=== PATIENT | female | born 1960 | race Caucasian/White ===

== ENCOUNTER → 2020-03-11 | Outpatient (CLI) | payer OTHER ==
[~2020-03-11] MED LIST: GUAI5LIQ PO; LEVO88TA2 PO; LORA-445 PO; MAGN400T9 PO; METO50TA82 PO; OXYC-302 PO; PANT40TA3 PO; SIMV10TA18 PO
[2020-03-11 17:16] LABS: MEAN CORPUSCULAR HEMOGLOBIN 28.7 pg (27.0-34.8); MEAN PLATELET VOLUME 8.7 fL (7.4-10.4); PLATELET COUNT 365 x10^3/uL (130-400); RED BLOOD COUNT 4.65 x10^6/uL (3.82-5.3); RED CELL DISTRIBUTION WIDTH 17.5 % (9.6-15.2)
[2020-03-11 17:27] LABS: ALANINE AMINOTRANSFERASE 224 U/L (12-78); ALBUMIN 2.9 g/dL (3.4-5.0); ANION GAP 9 mmol/L (5-15); CALCIUM 8.3 mg/dL (8.5-10.1); CHLORIDE 110 mmol/L (98-107); CREATININE 0.79 mg/dL (0.55-1.02)
[2020-03-11 17:29] LABS: ALKALINE PHOSPHATASE 239 U/L (45-117); BILIRUBIN,TOTAL 1.2 mg/dL (0.2-1.0); TOTAL PROTEIN 6.3 g/dL (6.4-8.2)
[2020-03-11 17:30] LABS: INTERNATIONAL NORMALIZED RATIO 1.14 (0.93-1.1); PROTHROMBIN TIME 12.1 Seconds (9.6-11.5)
[2020-03-11 17:53] LABS: MD YES
[2020-03-11 17:54] LABS: BASOS#(MANUAL) 0.08 x10^3/uL (0-0.1); BASOS% (MANUAL) 1 % (0-1); EOS#(MANUAL) 0.08 x10^3/uL (0.0-0.4); EOS% (MANUAL) 1 % (1-7); LYMPH#(MANUAL) 2.89 x10^3/uL (1-3.4); LYMPHS% (MANUAL) 38 % (22-44); MONOS#(MANUAL) 0.68 x10^3/uL (0.3-2.7); MONOS% (MANUAL) 9 % (2-9); SEG#(MANUAL) 3.88 x10^3/uL (1.8-6.8); SEGS% (MANUAL) 51 % (42-75)
[2020-03-11 17:56] LABS: ACANTHOCYTES 1+
[2020-03-11 17:57] LABS: ECHINOCYTES 1+; TARGET CELLS 1+
[2020-03-11 18:00] LABS: SCHISTOCYTES 1+
[2020-03-11 18:03] LABS: ANISOCYTOSIS 1+
[2020-03-11 18:04] LABS: <PLATELET ESTIMATE> ADEQUATE; <PLT MORPHOLOGY> NORMAL PLT MORPH; CRENATED 1+
== END | disposition home or self-care (01) ==
LOC: STAR 15:44
PROVIDERS: ATTEND Specialist
DX: Z01.818 Encounter for other preprocedural examination (principal); Z51.11 Encounter for antineoplastic chemotherapy; C79.00 Secondary malignant neoplasm of unspecified kidney and renal pelvis; C56.9 Malignant neoplasm of unspecified ovary; R94.31 Abnormal electrocardiogram [ECG] [EKG]
CPT/HCPCS: 36415; 71046; 80053; 85025; 85610; 85730; 93005; J1642

== ENCOUNTER 2020-03-18 06:59 | Inpatient (IN) | payer OTHER ==
[~2020-03-18] VITALS: Ht 162.6 cm; Wt 48.0 kg
[2020-03-18] MEDS ORDERED: LACTATED RINGERS 1,000 ML IV ONE (07:15)
[2020-03-18] MEDS ORDERED: CEFOTETAN PMX 2GM/50ML 50 ML IVPB STA (07:15)
[2020-03-18] MEDS ORDERED: CHLORHEXIDINE 15 ML UDC MM STA (07:16)
[2020-03-18] MEDS ORDERED: MIDAZOLAM 1 MG/ML, 2ML ONE (07:35)
[2020-03-18] MEDS ORDERED: FENTANYL PF 250 MCG/5ML ONE (07:35)
[2020-03-18] MEDS ORDERED: SCOPOLAMINE 1MG PATCH TD ONE ×2 (07:36→07:40)
[2020-03-18] MEDS ORDERED: GABAPENTIN 300 MG CAPSULE PO STA (07:36)
[2020-03-18] MEDS ORDERED: ACETAMINOPHEN 500 MG TABLET PO STA (07:36)
[2020-03-18] MEDS ORDERED: ONDANSETRON 2MG/ML, 2ML IVPush PRN (09:00)
[2020-03-18] MEDS ORDERED: OXYcodone 5 MG/5 ML ORAL.SOL UDC PO PRN (09:00)
[2020-03-18] MEDS ORDERED: LABETALOL 5MG/ML, 20ML IV PRN (09:00)
[2020-03-18] MEDS ORDERED: MEPERIDINE/PF 25MG/0.5ML IVPush PRN (09:00)
[2020-03-18] MEDS ORDERED: hydrALAzine 20 MG/ML, 1ML IV PRN (09:00)
[2020-03-18] MEDS ORDERED: PROMETHAZINE 25 MG/ML, 1ML IVPush PRN (09:00)
[2020-03-18] MEDS ORDERED: DIPHENHYDRAMINE 50 MG/ML, 1ML IVPush PRN ×2 (09:00→11:30)
[2020-03-18] MEDS ORDERED: DIAZEPAM 5 MG/ML, 2ML IVPush PRN (09:00)
[2020-03-18] MEDS ORDERED: GLYCOPYRROLATE 0.2MG/1ML, 5ML ONE (09:12)
[2020-03-18] MEDS ORDERED: PROPOFOL 10 MG/ML, 20ML ONE (09:12)
[2020-03-18] MEDS ORDERED: NEOSTIGMINE 1 MG/ML, 10ML ONE (09:12)
[2020-03-18] MEDS ORDERED: ROCURONIUM 10 MG/ML,10ML ONE (09:12)
[2020-03-18] MEDS ORDERED: DEXAMETHASONE 4 MG/ML, 1ML ONE (09:12)
[2020-03-18] MEDS ORDERED: ONDANSETRON 2MG/ML, 2ML ONE (09:12)
[2020-03-18] MEDS ORDERED: ACETAMINOPHEN 325 MG TABLET PO PRN (11:30)
[2020-03-18] MEDS ORDERED: FENTANYL PF 100 MCG/2ML ONE (12:11)
[2020-03-18] MEDS: FENTANYL PF 100 MCG/2ML IV PRN ×2 (12:12→12:17)
[2020-03-18] MEDS ORDERED: HYDROmorphone 2 MG/ML, 1ML ONE (12:15)
[2020-03-18] MEDS: HYDROmorphone 1 MG/ML, 1ML INJ IVPush PRN ×2 (12:19→12:45)
[2020-03-18 14:34] VITALS: BP 99/65
[2020-03-18] MEDS: POTASSIUM CHLORIDE 20 MEQ in D5%-0.9% NACL 1,000 ML IV SCH ×2 (15:17→23:42)
[2020-03-18 19:50] VITALS: BP 95/61
[2020-03-18] MEDS: FAMOTIDINE 20 MG/2 ML IV SCH (21:31)
[2020-03-19 01:24] VITALS: BP 107/74
[2020-03-19] MEDS: LEVOTHYROXINE 88 MCG TABLET PO SCH (05:58)
[2020-03-19 06:20] LABS: BASOPHILS % (AUTO) 0 % (0-1); EOSINOPHILS % (AUTO) 0 % (1-7); LYMPHOCYTES % (AUTO) 15 % (22-44); MEAN CORPUSCULAR HEMOGLOBIN 28.9 pg (27.0-34.8); MEAN CORPUSCULAR HGB CONC 33.1 g/dL (32.4-35.8); MONOCYTES % (AUTO) 7 % (2-9); NEUTROPHILS % (AUTO) 78 % (42-75); PLATELET COUNT 300 x10^3/uL (130-400); RED BLOOD COUNT 3.92 x10^6/uL (3.82-5.3); RED CELL DISTRIBUTION WIDTH 17.7 % (9.6-15.2)
[2020-03-19 06:25] LABS: CHLORIDE 112 mmol/L (98-107)
[2020-03-19 06:28] LABS: MD NO
[2020-03-19 06:40] LABS: ALBUMIN 1.8 g/dL (3.4-5.0); ANION GAP 6 mmol/L (5-15); CALCIUM 7.4 mg/dL (8.5-10.1); CREATININE 0.81 mg/dL (0.55-1.02)
[2020-03-19 07:56] VITALS: BP 100/68
[2020-03-19] MEDS ORDERED: KETOROLAC 30 MG/1 ML IM PRN (10:00)
[2020-03-19] MEDS ORDERED: SODIUM CHLORIDE 0.9%, 500ML IVBOLUS ONE (10:00)
[2020-03-19] MEDS: POTASSIUM CHLORIDE 20 MEQ in D5%-0.9% NACL 1,000 ML IV SCH ×2 (10:12→20:21)
[2020-03-19] MEDS: FAMOTIDINE 20 MG/2 ML IV SCH ×2 (10:12→20:43)
[2020-03-19] MEDS: ENOXAPARIN 40 MG/0.4 ML SQ SCH (13:30)
[2020-03-19 14:43] VITALS: BP 97/64
[2020-03-19] MEDS: KETOROLAC 30 MG/1 ML IVPush PRN (15:52)
[2020-03-19 19:09] VITALS: BP 95/56
[2020-03-20 00:39] VITALS: BP 89/56
[2020-03-20] MEDS: KETOROLAC 30 MG/1 ML IVPush PRN ×3 (01:32→21:37)
[2020-03-20] MEDS: POTASSIUM CHLORIDE 20 MEQ in D5%-0.9% NACL 1,000 ML IV SCH ×2 (03:43→15:19)
[2020-03-20] MEDS: LEVOTHYROXINE 88 MCG TABLET PO SCH (05:06)
[2020-03-20 05:13] LABS: CALCIUM 7.3 mg/dL (8.5-10.1)
[2020-03-20 05:15] LABS: CREATININE 0.62 mg/dL (0.55-1.02)
[2020-03-20 05:18] LABS: BASOPHILS % (AUTO) 1 % (0-1); EOSINOPHILS % (AUTO) 0 % (1-7); LYMPHOCYTES % (AUTO) 12 % (22-44); MEAN CORPUSCULAR HEMOGLOBIN 29.1 pg (27.0-34.8); MEAN CORPUSCULAR HGB CONC 33.1 g/dL (32.4-35.8); MEAN PLATELET VOLUME 9.3 fL (7.4-10.4); MONOCYTES % (AUTO) 4 % (2-9); NEUTROPHILS % (AUTO) 83 % (42-75); PLATELET COUNT 241 x10^3/uL (130-400); RED CELL DISTRIBUTION WIDTH 18.2 % (9.6-15.2)
[2020-03-20 05:21] LABS: MD NO
[2020-03-20 05:35] LABS: ANION GAP 1 mmol/L (5-15); CHLORIDE 118 mmol/L (98-107)
[2020-03-20 07:35] VITALS: BP 85/48
[2020-03-20 09:08] VITALS: BP 82/48
[2020-03-20] MEDS: FAMOTIDINE 20 MG/2 ML IV SCH ×2 (09:53→20:50)
[2020-03-20 13:19] VITALS: BP 80/55
[2020-03-20] MEDS: ENOXAPARIN 40 MG/0.4 ML SQ SCH (13:30)
[2020-03-20 18:54] VITALS: BP 95/60
[2020-03-21] MEDS: POTASSIUM CHLORIDE 20 MEQ in D5%-0.9% NACL 1,000 ML IV SCH ×2 (00:34→08:16)
[2020-03-21 01:12] VITALS: BP 80/48
[2020-03-21] MEDS: KETOROLAC 30 MG/1 ML IVPush PRN ×3 (05:41→18:44)
[2020-03-21] MEDS: LEVOTHYROXINE 88 MCG TABLET PO SCH (05:41)
[2020-03-21 05:47] VITALS: BP 93/58
[2020-03-21 06:11] LABS: ANION GAP 3 mmol/L (5-15); CALCIUM 7.7 mg/dL (8.5-10.1); CHLORIDE 119 mmol/L (98-107); CREATININE 0.55 mg/dL (0.55-1.02)
[2020-03-21 06:19] LABS: BASOPHILS % (AUTO) 0 % (0-1); EOSINOPHILS % (AUTO) 1 % (1-7); LYMPHOCYTES % (AUTO) 12 % (22-44); MEAN CORPUSCULAR HGB CONC 33.6 g/dL (32.4-35.8); MEAN PLATELET VOLUME 9.5 fL (7.4-10.4); MONOCYTES % (AUTO) 5 % (2-9); NEUTROPHILS % (AUTO) 82 % (42-75); PLATELET COUNT 222 x10^3/uL (130-400); RED BLOOD COUNT 3.01 x10^6/uL (3.82-5.3); RED CELL DISTRIBUTION WIDTH 18.2 % (9.6-15.2)
[2020-03-21 07:17] VITALS: BP 83/52
[2020-03-21 07:22] LABS: ANISOCYTOSIS 1+; MD MORPH REVIEW ONLY
[2020-03-21 07:23] LABS: <PLATELET ESTIMATE> ADEQUATE; <PLT MORPHOLOGY> NORMAL PLT MORPH; ACANTHOCYTES 1+; CRENATED 1+; ECHINOCYTES 1+; POLYCHROMASIA 1+; SCHISTOCYTES 1+; TARGET CELLS 1+
[2020-03-21] MEDS: FAMOTIDINE 20 MG/2 ML IV SCH ×2 (08:16→20:21)
[2020-03-21] MEDS ORDERED: PEDS NS BOLUS IV.SOLN 20ML/KG IVBOLUS ONE (11:00)
[2020-03-21] MEDS: D5%-0.45NACL+KCL 20MEQ 1,000 ML IV SCH ×2 (11:13→20:48)
[2020-03-21] MEDS: ENOXAPARIN 40 MG/0.4 ML SQ SCH (12:45)
[2020-03-21 13:24] VITALS: BP 93/61
[2020-03-21 19:40] VITALS: BP 87/53
[2020-03-22 01:54] VITALS: BP 95/62
[2020-03-22] MEDS: KETOROLAC 30 MG/1 ML IVPush PRN (05:01)
[2020-03-22] MEDS: LEVOTHYROXINE 88 MCG TABLET PO SCH (05:01)
[2020-03-22 05:14] LABS: BASOPHILS % (AUTO) 0 % (0-1); EOSINOPHILS % (AUTO) 0 % (1-7); LYMPHOCYTES % (AUTO) 12 % (22-44); MEAN CORPUSCULAR HEMOGLOBIN 29.6 pg (27.0-34.8); MEAN CORPUSCULAR HGB CONC 33.9 g/dL (32.4-35.8); MEAN PLATELET VOLUME 9.3 fL (7.4-10.4); MONOCYTES % (AUTO) 8 % (2-9); NEUTROPHILS % (AUTO) 79 % (42-75); PLATELET COUNT 256 x10^3/uL (130-400); RED BLOOD COUNT 3.07 x10^6/uL (3.82-5.3); RED CELL DISTRIBUTION WIDTH 17.9 % (9.6-15.2)
[2020-03-22 05:15] LABS: ANION GAP 3 mmol/L (5-15); CALCIUM 7.5 mg/dL (8.5-10.1); CHLORIDE 115 mmol/L (98-107)
[2020-03-22 05:16] LABS: CREATININE 0.47 mg/dL (0.55-1.02)
[2020-03-22 06:37] LABS: MD SCAN
[2020-03-22 06:42] VITALS: BP 95/59
[2020-03-22] MEDS: D5%-0.45NACL+KCL 20MEQ 1,000 ML IV SCH ×2 (07:06→23:19)
[2020-03-22] MEDS: FAMOTIDINE 20 MG/2 ML IV SCH ×2 (07:46→21:15)
[2020-03-22] MEDS ORDERED: MAGNESIUM SULFATE PMX 2GM/50ML 50 ML IV ONE (09:00)
[2020-03-22] MEDS: KETOROLAC 30 MG/1 ML IVPush SCH ×3 (11:43→23:24)
[2020-03-22 12:01] VITALS: BP 90/63
[2020-03-22] MEDS: ENOXAPARIN 40 MG/0.4 ML SQ SCH (13:42)
[2020-03-22 20:18] VITALS: BP 106/74
[2020-03-23 01:00] VITALS: BP 95/63
[2020-03-23] MEDS: KETOROLAC 30 MG/1 ML IVPush SCH ×3 (05:32→16:50)
[2020-03-23] MEDS: LEVOTHYROXINE 88 MCG TABLET PO SCH (05:38)
[2020-03-23] MEDS: D5%-0.45NACL+KCL 20MEQ 1,000 ML IV SCH ×2 (08:16→16:50)
[2020-03-23] MEDS: FAMOTIDINE 20 MG/2 ML IV SCH ×2 (08:16→22:11)
[2020-03-23 08:24] VITALS: BP 109/73
[2020-03-23] MEDS: ENOXAPARIN 40 MG/0.4 ML SQ SCH (13:22)
[2020-03-23 14:33] VITALS: BP 105/69
[2020-03-23] MEDS: ONDANSETRON 2MG/ML, 2ML IVPush PRN (16:50)
[2020-03-23 18:56] VITALS: BP 91/62
[2020-03-24] MEDS: KETOROLAC 30 MG/1 ML IVPush SCH ×3 (00:08→11:51)
[2020-03-24] MEDS: D5%-0.45NACL+KCL 20MEQ 1,000 ML IV SCH ×3 (00:35→18:56)
[2020-03-24 04:46] LABS: BASOPHILS % (AUTO) 0 % (0-1); EOSINOPHILS % (AUTO) 0 % (1-7); LYMPHOCYTES % (AUTO) 20 % (22-44); MEAN CORPUSCULAR HEMOGLOBIN 29.1 pg (27.0-34.8); MEAN CORPUSCULAR HGB CONC 33.5 g/dL (32.4-35.8); MEAN PLATELET VOLUME 9.2 fL (7.4-10.4); MONOCYTES % (AUTO) 10 % (2-9); NEUTROPHILS % (AUTO) 70 % (42-75); PLATELET COUNT 348 x10^3/uL (130-400); RED BLOOD COUNT 3.32 x10^6/uL (3.82-5.3); RED CELL DISTRIBUTION WIDTH 17.8 % (9.6-15.2)
[2020-03-24 04:50] LABS: ANION GAP 3 mmol/L (5-15); CALCIUM 7.6 mg/dL (8.5-10.1); CHLORIDE 106 mmol/L (98-107)
[2020-03-24 04:51] LABS: CREATININE 0.54 mg/dL (0.55-1.02)
[2020-03-24 04:52] LABS: MD NO
[2020-03-24 05:01] VITALS: BP 100/65
[2020-03-24] MEDS: LEVOTHYROXINE 88 MCG TABLET PO SCH (05:27)
[2020-03-24 07:13] VITALS: BP 93/58
[2020-03-24] MEDS: FAMOTIDINE 20 MG/2 ML IV SCH ×2 (08:32→20:25)
[2020-03-24 12:00] VITALS: BP 100/65
[2020-03-24] MEDS: ENOXAPARIN 40 MG/0.4 ML SQ SCH (13:42)
[2020-03-24] MEDS: ONDANSETRON 2MG/ML, 2ML IVPush PRN (15:20)
[2020-03-24 18:46] VITALS: BP 98/66
[2020-03-25 01:22] VITALS: BP 106/70
[2020-03-25] MEDS: LEVOTHYROXINE 88 MCG TABLET PO SCH (05:58)
[2020-03-25] MEDS: D5%-0.45NACL+KCL 20MEQ 1,000 ML IV SCH ×2 (05:58→15:40)
[2020-03-25 06:08] LABS: ANION GAP 8 mmol/L (5-15); CALCIUM 6.7 mg/dL (8.5-10.1); CHLORIDE 95 mmol/L (98-107); CREATININE 0.63 mg/dL (0.55-1.02)
[2020-03-25 06:49] VITALS: BP 98/66
[2020-03-25] MEDS: FAMOTIDINE 20 MG/2 ML IV SCH ×2 (08:45→19:52)
[2020-03-25 12:32] VITALS: BP 103/68
[2020-03-25] MEDS: ENOXAPARIN 40 MG/0.4 ML SQ SCH (13:30)
[2020-03-25] MEDS ORDERED: MAGNESIUM SULFATE PMX 4GM/100M 100 ML IVPB ONE (19:30)
[2020-03-25 19:31] VITALS: BP 98/71
[2020-03-25] MEDS: D5%-0.9% NACL+KCL 20MEQ 1,000 ML IV SCH (19:42)
[2020-03-26 02:33] VITALS: BP 93/61
[2020-03-26 04:15] LABS: BASOPHILS % (AUTO) 1 % (0-1); EOSINOPHILS % (AUTO) 1 % (1-7); LYMPHOCYTES % (AUTO) 24 % (22-44); MEAN CORPUSCULAR HEMOGLOBIN 29.3 pg (27.0-34.8); MEAN CORPUSCULAR HGB CONC 33.3 g/dL (32.4-35.8); MEAN PLATELET VOLUME 8.3 fL (7.4-10.4); MONOCYTES % (AUTO) 8 % (2-9); NEUTROPHILS % (AUTO) 66 % (42-75); PLATELET COUNT 475 x10^3/uL (130-400); RED BLOOD COUNT 3.06 x10^6/uL (3.82-5.3); RED CELL DISTRIBUTION WIDTH 16.9 % (9.6-15.2)
[2020-03-26 04:19] LABS: MD NO
[2020-03-26 04:26] LABS: CALCIUM 7.6 mg/dL (8.5-10.1); CREATININE 0.63 mg/dL (0.55-1.02)
[2020-03-26 04:41] LABS: ANION GAP 4 mmol/L (5-15); CHLORIDE 104 mmol/L (98-107)
[2020-03-26] MEDS: LEVOTHYROXINE 88 MCG TABLET PO SCH (05:49)
[2020-03-26 06:22] VITALS: BP 99/69
[2020-03-26] MEDS: D5%-0.9% NACL+KCL 20MEQ 1,000 ML IV SCH ×2 (07:50→20:22)
[2020-03-26] MEDS: FAMOTIDINE 20 MG/2 ML IV SCH ×2 (07:50→19:48)
[2020-03-26] MEDS: PIPERACILLIN/TAZO/PMX 3.375GM 50 ML IV SCH ×3 (12:00→17:53)
[2020-03-26 12:23] VITALS: BP 101/64
[2020-03-26] MEDS: ENOXAPARIN 40 MG/0.4 ML SQ SCH (14:04)
[2020-03-26 18:50] VITALS: BP 103/68
[2020-03-27] MEDS: PIPERACILLIN/TAZO/PMX 3.375GM 50 ML IV SCH ×5 (00:14→23:10)
[2020-03-27 01:54] VITALS: BP 98/63
[2020-03-27] MEDS: D5%-0.9% NACL+KCL 20MEQ 1,000 ML IV SCH ×3 (05:11→21:26)
[2020-03-27 05:51] LABS: BASOPHILS % (AUTO) 1 % (0-1); EOSINOPHILS % (AUTO) 1 % (1-7); LYMPHOCYTES % (AUTO) 23 % (22-44); MEAN CORPUSCULAR HEMOGLOBIN 29.4 pg (27.0-34.8); MEAN CORPUSCULAR HGB CONC 33.8 g/dL (32.4-35.8); MEAN PLATELET VOLUME 8.3 fL (7.4-10.4); MONOCYTES % (AUTO) 14 % (2-9); NEUTROPHILS % (AUTO) 61 % (42-75); PLATELET COUNT 575 x10^3/uL (130-400); RED BLOOD COUNT 3.27 x10^6/uL (3.82-5.3); RED CELL DISTRIBUTION WIDTH 17.5 % (9.6-15.2)
[2020-03-27] MEDS: LEVOTHYROXINE 88 MCG TABLET PO SCH (06:00)
[2020-03-27 06:04] LABS: MD NO
[2020-03-27 07:02] VITALS: BP 103/67
[2020-03-27] MEDS: FAMOTIDINE 20 MG/2 ML IV SCH ×2 (07:39→19:39)
[2020-03-27] MEDS: LEVOTHYROXINE 100 MCG INJ IVPush SCH (11:41)
[2020-03-27] MEDS: ENOXAPARIN 40 MG/0.4 ML SQ SCH (12:28)
[2020-03-27 13:45] VITALS: BP 101/67
[2020-03-27 19:58] VITALS: BP 92/62
[2020-03-28 01:40] VITALS: BP 92/57
[2020-03-28] MEDS: PIPERACILLIN/TAZO/PMX 3.375GM 50 ML IV SCH ×3 (04:55→17:44)
[2020-03-28 05:26] LABS: ANION GAP 3 mmol/L (5-15); CALCIUM 7.4 mg/dL (8.5-10.1); CHLORIDE 107 mmol/L (98-107); CREATININE 0.63 mg/dL (0.55-1.02)
[2020-03-28 05:30] LABS: BASOPHILS % (AUTO) 1 % (0-1); EOSINOPHILS % (AUTO) 1 % (1-7); LYMPHOCYTES % (AUTO) 25 % (22-44); MEAN CORPUSCULAR HEMOGLOBIN 29.2 pg (27.0-34.8); MEAN CORPUSCULAR HGB CONC 33.4 g/dL (32.4-35.8); MEAN PLATELET VOLUME 8.1 fL (7.4-10.4); MONOCYTES % (AUTO) 16 % (2-9); NEUTROPHILS % (AUTO) 58 % (42-75); PLATELET COUNT 520 x10^3/uL (130-400)
[2020-03-28 05:42] LABS: MD NO
[2020-03-28 06:44] VITALS: BP 91/59
[2020-03-28] MEDS: D5%-0.9% NACL+KCL 20MEQ 1,000 ML IV SCH ×2 (07:10→20:12)
[2020-03-28] MEDS: FAMOTIDINE 20 MG/2 ML IV SCH ×2 (09:33→20:12)
[2020-03-28] MEDS: LEVOTHYROXINE 100 MCG INJ IVPush SCH (11:37)
[2020-03-28 13:20] VITALS: BP 98/65
[2020-03-28] MEDS: ENOXAPARIN 40 MG/0.4 ML SQ SCH (14:15)
[2020-03-28 19:24] VITALS: BP 95/60
[2020-03-29] MEDS: PIPERACILLIN/TAZO/PMX 3.375GM 50 ML IV SCH ×5 (00:08→23:25)
[2020-03-29 03:07] VITALS: BP 102/66
[2020-03-29] MEDS: D5%-0.9% NACL+KCL 20MEQ 1,000 ML IV SCH ×3 (04:28→23:25)
[2020-03-29 07:43] VITALS: BP 104/68
[2020-03-29] MEDS: FAMOTIDINE 20 MG/2 ML IV SCH ×2 (10:02→20:11)
[2020-03-29] MEDS: LEVOTHYROXINE 100 MCG INJ IVPush SCH (11:59)
[2020-03-29 12:24] VITALS: BP 109/72
[2020-03-29] MEDS: ENOXAPARIN 40 MG/0.4 ML SQ SCH (14:52)
[2020-03-29 20:09] VITALS: BP 103/65
[2020-03-30 03:55] VITALS: BP 98/66
[2020-03-30] MEDS: PIPERACILLIN/TAZO/PMX 3.375GM 50 ML IV SCH ×4 (05:42→23:17)
[2020-03-30 06:22] LABS: ANION GAP 5 mmol/L (5-15); CALCIUM 7.5 mg/dL (8.5-10.1); CHLORIDE 107 mmol/L (98-107); CREATININE 0.73 mg/dL (0.55-1.02)
[2020-03-30 06:29] LABS: MEAN CORPUSCULAR HEMOGLOBIN 30.5 pg (27.0-34.8); MEAN CORPUSCULAR HGB CONC 33.7 g/dL (32.4-35.8); MEAN PLATELET VOLUME 7.8 fL (7.4-10.4); PLATELET COUNT 711 x10^3/uL (130-400); RED BLOOD COUNT 2.52 x10^6/uL (3.82-5.3); RED CELL DISTRIBUTION WIDTH 16.8 % (9.6-15.2)
[2020-03-30] MEDS ORDERED: MAGNESIUM SULFATE PMX 4GM/100M 100 ML IVPB ONE (07:00)
[2020-03-30 07:04] LABS: MD YES
[2020-03-30 07:06] LABS: ANISOCYTOSIS 1+; BAND#(MANUAL) 0.44 x10^3/uL; BANDS%(MANUAL) 5 % (0-7); LYMPH#(MANUAL) 1.67 x10^3/uL (1-3.4); LYMPHS% (MANUAL) 19 % (22-44); METAMYELOCYTES# (MANUAL) 0.26 x10^3/uL (0-0); METAMYELOCYTES% (MANUAL) 3 % (0-1); MONOS#(MANUAL) 1.23 x10^3/uL (0.3-2.7); MONOS% (MANUAL) 14 % (2-9); POLYCHROMASIA 1+; SEG#(MANUAL) 5.19 x10^3/uL (1.8-6.8); SEGS% (MANUAL) 59 % (42-75)
[2020-03-30 07:07] LABS: <PLATELET ESTIMATE> INCREASED; <PLT MORPHOLOGY> NORMAL PLT MORPH
[2020-03-30] MEDS: FAMOTIDINE 20 MG/2 ML IV SCH ×2 (07:26→20:28)
[2020-03-30 07:32] VITALS: BP 99/63
[2020-03-30] MEDS ORDERED: FENTANYL 12 MCG PATCH TD SCH (10:00)
[2020-03-30] MEDS: FENTANYL REMOVE PATCH NOTE XX SCH (10:44)
[2020-03-30] MEDS: LEVOTHYROXINE 100 MCG INJ IVPush SCH (12:00)
[2020-03-30 12:57] VITALS: BP 101/67
[2020-03-30] MEDS: ONDANSETRON 2MG/ML, 2ML IVPush PRN (13:21)
[2020-03-30] MEDS: D5%-0.9% NACL+KCL 20MEQ 1,000 ML IV SCH (13:21)
[2020-03-30] MEDS: ENOXAPARIN 40 MG/0.4 ML SQ SCH (14:27)
[2020-03-30 18:49] VITALS: BP 94/61
[2020-03-31] MEDS: D5%-0.9% NACL+KCL 20MEQ 1,000 ML IV SCH ×2 (00:09→09:41)
[2020-03-31 03:20] VITALS: BP 91/58
[2020-03-31] MEDS: PIPERACILLIN/TAZO/PMX 3.375GM 50 ML IV SCH ×4 (05:26→23:27)
[2020-03-31 07:02] VITALS: BP 96/66
[2020-03-31] MEDS: FAMOTIDINE 20 MG/2 ML IV SCH (08:24)
[2020-03-31] MEDS ORDERED: TPN PER PHARMACY MC PRN (10:30)
[2020-03-31] MEDS ORDERED: MORPHINE SULFATE 4 MG/ML, 1ML IV PRN (10:30)
[2020-03-31] MEDS: LEVOTHYROXINE 100 MCG INJ IVPush SCH (11:54)
[2020-03-31 12:53] LABS: ALANINE AMINOTRANSFERASE 31 U/L (12-78); ALBUMIN 1.3 g/dL (3.4-5.0); ANION GAP 9 mmol/L (5-15); CALCIUM 7.4 mg/dL (8.5-10.1); CHLORIDE 109 mmol/L (98-107)
[2020-03-31 12:56] LABS: ALKALINE PHOSPHATASE 233 U/L (45-117); BILIRUBIN,TOTAL 1.7 mg/dL (0.2-1.0); TOTAL PROTEIN 4.7 g/dL (6.4-8.2)
[2020-03-31 13:44] VITALS: BP 96/62
[2020-03-31] MEDS: ENOXAPARIN 40 MG/0.4 ML SQ SCH (14:21)
[2020-03-31] MEDS ORDERED: FILTER, DISP 1.2 MICRON FOR TPN/PVN IV PRN (14:30)
[2020-03-31] MEDS ORDERED: DEXTROSE 10% 500 ML IV PRN (17:00)
[2020-03-31] MEDS ORDERED: FAT EMUL IV SCH (17:00)
[2020-03-31] MEDS ORDERED: AMINO ACID 10% IV SCH (17:00)
[2020-03-31] MEDS ORDERED: [UNRECOGNIZED DRUG - OTHER] IV SCH (17:00)
[2020-03-31] MEDS ORDERED: SMOF TPN IV SCH (17:00)
[2020-03-31] MEDS ORDERED: DEXTROSE 70% IV SCH (17:00)
[2020-03-31] MEDS ORDERED: DEXTROSE 50%, 50ML SYRINGE IVPush PRN (17:00)
[2020-03-31] MEDS: D5%-0.9% NACL 1,000 ML IV SCH (17:24)
[2020-03-31 19:12] VITALS: BP 106/72
[2020-03-31] MEDS: INSULIN REGULAR LOW DOSE Q6H X 48HRS SQ-INSULIN SCH (20:25)
[2020-04-01] VITALS (11 sets, daily range): BP systolic 99–114; BP diastolic 61–70
[2020-04-01 03:28] LABS: MEAN CORPUSCULAR HEMOGLOBIN 31.1 pg (27.0-34.8); MEAN CORPUSCULAR HGB CONC 33.9 g/dL (32.4-35.8); MEAN PLATELET VOLUME 7.6 fL (7.4-10.4); PLATELET COUNT 806 x10^3/uL (130-400); RED BLOOD COUNT 2.26 x10^6/uL (3.82-5.3); RED CELL DISTRIBUTION WIDTH 16.9 % (9.6-15.2)
[2020-04-01 03:35] LABS: ALBUMIN 1.4 g/dL (3.4-5.0); ANION GAP 6 mmol/L (5-15); CALCIUM 7.5 mg/dL (8.5-10.1); CHLORIDE 110 mmol/L (98-107)
[2020-04-01 03:44] LABS: CREATININE 0.67 mg/dL (0.55-1.02); PREALBUMIN 7.8 mg/dL (20.0-40.0); TRIGLYCERIDES 82 mg/dL (50-200)
[2020-04-01] MEDS: INSULIN REGULAR LOW DOSE Q6H X 48HRS SQ-INSULIN SCH ×4 (03:54→21:00)
[2020-04-01 03:57] LABS: MD YES
[2020-04-01 04:00] LABS: ANISOCYTOSIS 1+; BANDS%(MANUAL) 2 % (0-7); EOS% (MANUAL) 1 % (1-7); LYMPH#(MANUAL) 2.08 x10^3/uL (1-3.4); LYMPHS% (MANUAL) 21 % (22-44); MONOS% (MANUAL) 3 % (2-9); SEG#(MANUAL) 7.23 x10^3/uL (1.8-6.8); SEGS% (MANUAL) 73 % (42-75)
[2020-04-01 04:01] LABS: <PLATELET ESTIMATE> INCREASED; <PLT MORPHOLOGY> NORMAL PLT MORPH; HYPOCHROMIA 1+; OVALOCYTES 1+; POLYCHROMASIA 1+
[2020-04-01] MEDS: PIPERACILLIN/TAZO/PMX 3.375GM 50 ML IV SCH ×3 (05:31→17:58)
[2020-04-01] MEDS: D5%-0.9% NACL 1,000 ML IV SCH (06:38)
[2020-04-01] MEDS ORDERED: MAGNESIUM SULFATE PMX 2GM/50ML 50 ML IV ONE (07:00)
[2020-04-01] MEDS: MORPHINE SULFATE 4 MG/ML, 1ML IV PRN ×2 (07:38→16:16)
[2020-04-01] MEDS: LEVOTHYROXINE 100 MCG INJ IVPush SCH (11:59)
[2020-04-01] MEDS: ENOXAPARIN 40 MG/0.4 ML SQ SCH (14:18)
[2020-04-01] MEDS ORDERED: [UNRECOGNIZED DRUG - OTHER] IV SCH (17:00)
[2020-04-01] MEDS ORDERED: FILTER, DISP 1.2 MICRON FOR TPN/PVN IV PRN (17:00)
[2020-04-01] MEDS ORDERED: AMINO ACID 10% IV SCH ×2 (17:00)
[2020-04-01] MEDS ORDERED: DEXTROSE 70% IV SCH ×2 (17:00)
[2020-04-01] MEDS ORDERED: [UNRECOGNIZED DRUG - OTHER] IV SCH (17:00)
[2020-04-01] MEDS ORDERED: SMOF TPN IV SCH ×2 (17:00)
[2020-04-01] MEDS ORDERED: FAT EMUL IV SCH ×2 (17:00)
[2020-04-02] MEDS: PIPERACILLIN/TAZO/PMX 3.375GM 50 ML IV SCH ×5 (00:20→23:58)
[2020-04-02 02:42] VITALS: BP 117/69
[2020-04-02] MEDS: INSULIN REGULAR LOW DOSE Q6H X 48HRS SQ-INSULIN SCH (03:00)
[2020-04-02 04:21] LABS: MEAN CORPUSCULAR HEMOGLOBIN 30.9 pg (27.0-34.8); MEAN CORPUSCULAR HGB CONC 33.9 g/dL (32.4-35.8); MEAN PLATELET VOLUME 7.8 fL (7.4-10.4); PLATELET COUNT 689 x10^3/uL (130-400); RED BLOOD COUNT 3.11 x10^6/uL (3.82-5.3); RED CELL DISTRIBUTION WIDTH 15.7 % (9.6-15.2)
[2020-04-02 04:37] LABS: CHLORIDE 107 mmol/L (98-107)
[2020-04-02 05:03] LABS: ANION GAP 5 mmol/L (5-15); CALCIUM 7.7 mg/dL (8.5-10.1); CREATININE 0.59 mg/dL (0.55-1.02)
[2020-04-02 05:54] LABS: MD YES
[2020-04-02 05:56] LABS: BAND#(MANUAL) 0.27 x10^3/uL; BANDS%(MANUAL) 2 % (0-7); LYMPH#(MANUAL) 3.01 x10^3/uL (1-3.4); LYMPHS% (MANUAL) 22 % (22-44); METAMYELOCYTES# (MANUAL) 0.27 x10^3/uL (0-0); METAMYELOCYTES% (MANUAL) 2 % (0-1); MONOS#(MANUAL) 1.23 x10^3/uL (0.3-2.7); MONOS% (MANUAL) 9 % (2-9); SEG#(MANUAL) 8.91 x10^3/uL (1.8-6.8); SEGS% (MANUAL) 65 % (42-75)
[2020-04-02 05:57] LABS: <PLATELET ESTIMATE> INCREASED; <PLT MORPHOLOGY> NORMAL PLT MORPH; ANISOCYTOSIS 1+; OVALOCYTES 1+; POLYCHROMASIA 1+
[2020-04-02 07:51] VITALS: BP 108/60
[2020-04-02] MEDS: MORPHINE SULFATE 4 MG/ML, 1ML IV PRN ×2 (08:54→13:56)
[2020-04-02] MEDS: D5%-0.9% NACL 1,000 ML IV SCH (09:23)
[2020-04-02] MEDS: FENTANYL REMOVE PATCH NOTE XX SCH (10:00)
[2020-04-02] MEDS: FENTANYL 25 MCG PATCH TD SCH (10:24)
[2020-04-02] MEDS: LEVOTHYROXINE 100 MCG INJ IVPush SCH (11:59)
[2020-04-02 12:46] VITALS: BP 112/67
[2020-04-02] MEDS: ENOXAPARIN 40 MG/0.4 ML SQ SCH (13:45)
[2020-04-02] MEDS ORDERED: SMOF TPN IV SCH ×2 (17:00→18:00)
[2020-04-02] MEDS ORDERED: FAT EMUL IV SCH ×2 (17:00→18:00)
[2020-04-02] MEDS ORDERED: [UNRECOGNIZED DRUG - OTHER] IV SCH ×2 (17:00→18:00)
[2020-04-02] MEDS ORDERED: DEXTROSE 70% IV SCH ×2 (17:00→18:00)
[2020-04-02] MEDS ORDERED: AMINO ACID 10% IV SCH ×2 (17:00→18:00)
[2020-04-02] MEDS: FILTER, DISP 1.2 MICRON FOR TPN/PVN IV PRN (18:28)
[2020-04-02 20:21] VITALS: BP 110/64
[2020-04-03 00:03] VITALS: BP 97/57
[2020-04-03 05:16] LABS: MEAN CORPUSCULAR HGB CONC 34.1 g/dL (32.4-35.8); MEAN PLATELET VOLUME 7.8 fL (7.4-10.4); PLATELET COUNT 654 x10^3/uL (130-400); RED BLOOD COUNT 2.91 x10^6/uL (3.82-5.3)
[2020-04-03 05:26] LABS: ANION GAP 6 mmol/L (5-15); CALCIUM 7.9 mg/dL (8.5-10.1); CHLORIDE 108 mmol/L (98-107)
[2020-04-03 05:27] LABS: CREATININE 0.58 mg/dL (0.55-1.02)
[2020-04-03 05:56] LABS: MD YES
[2020-04-03 05:58] LABS: ANISOCYTOSIS 1+; BAND#(MANUAL) 0.35 x10^3/uL; BANDS%(MANUAL) 2 % (0-7); BASOS#(MANUAL) 0.17 x10^3/uL (0-0.1); BASOS% (MANUAL) 1 % (0-1); EOS#(MANUAL) 0.17 x10^3/uL (0.0-0.4); EOS% (MANUAL) 1 % (1-7); LYMPH#(MANUAL) 3.81 x10^3/uL (1-3.4); LYMPHS% (MANUAL) 22 % (22-44); MONOS#(MANUAL) 2.25 x10^3/uL (0.3-2.7); MONOS% (MANUAL) 13 % (2-9); MYELOCYTES# (MANUAL) 0.17 x10^3/uL (0-0); MYELOCYTES% (MANUAL) 1 % (0-0); OVALOCYTES 1+; POLYCHROMASIA 1+; SEG#(MANUAL) 10.38 x10^3/uL (1.8-6.8); SEGS% (MANUAL) 60 % (42-75)
[2020-04-03 05:59] LABS: <PLATELET ESTIMATE> INCREASED; <PLT MORPHOLOGY> NORMAL PLT MORPH
[2020-04-03] MEDS: PIPERACILLIN/TAZO/PMX 3.375GM 50 ML IV SCH ×4 (06:15→23:41)
[2020-04-03 07:55] VITALS: BP 96/60
[2020-04-03] MEDS: INSULIN REGULAR LOW DOSE QDAY SQ-INSULIN SCH (09:30)
[2020-04-03] MEDS ORDERED: MAGNESIUM SULFATE PMX 2GM/50ML 50 ML IV ONE (11:00)
[2020-04-03] MEDS: LEVOTHYROXINE 100 MCG INJ IVPush SCH (11:10)
[2020-04-03 13:00] VITALS: BP 105/68
[2020-04-03] MEDS: ENOXAPARIN 40 MG/0.4 ML SQ SCH (14:25)
[2020-04-03] MEDS ORDERED: SMOF TPN IV SCH (17:00)
[2020-04-03] MEDS ORDERED: [UNRECOGNIZED DRUG - OTHER] IV SCH (17:00)
[2020-04-03] MEDS ORDERED: FAT EMUL IV SCH (17:00)
[2020-04-03] MEDS ORDERED: DEXTROSE 70% IV SCH (17:00)
[2020-04-03] MEDS ORDERED: AMINO ACID 10% IV SCH (17:00)
[2020-04-03] MEDS: FILTER, DISP 1.2 MICRON FOR TPN/PVN IV PRN (17:01)
[2020-04-03 19:51] VITALS: BP 99/63
[2020-04-03 23:11] LABS: MICROSCOPIC NOT IND
[2020-04-04 01:27] VITALS: BP 102/65
[2020-04-04] MEDS: PIPERACILLIN/TAZO/PMX 3.375GM 50 ML IV SCH ×4 (06:06→23:37)
[2020-04-04 06:35] LABS: ANION GAP 2 mmol/L (5-15); CALCIUM 8.4 mg/dL (8.5-10.1); CHLORIDE 106 mmol/L (98-107); CREATININE 0.61 mg/dL (0.55-1.02)
[2020-04-04] MEDS: INSULIN REGULAR LOW DOSE QDAY SQ-INSULIN SCH (07:20)
[2020-04-04 07:27] VITALS: BP 94/57
[2020-04-04 08:18] LABS: MEAN CORPUSCULAR HEMOGLOBIN 31.1 pg (27.0-34.8); MEAN CORPUSCULAR HGB CONC 32.9 g/dL (32.4-35.8); PLATELET COUNT 704 x10^3/uL (130-400); RED BLOOD COUNT 3.03 x10^6/uL (3.82-5.3); RED CELL DISTRIBUTION WIDTH 15.9 % (9.6-15.2)
[2020-04-04 09:02] LABS: MD YES
[2020-04-04 09:08] LABS: EOS#(MANUAL) 0.33 x10^3/uL (0.0-0.4); EOS% (MANUAL) 2 % (1-7); LYMPH#(MANUAL) 3.77 x10^3/uL (1-3.4); LYMPHS% (MANUAL) 23 % (22-44); METAMYELOCYTES# (MANUAL) 0.33 x10^3/uL (0-0); METAMYELOCYTES% (MANUAL) 2 % (0-1); MONOS#(MANUAL) 0.98 x10^3/uL (0.3-2.7); MONOS% (MANUAL) 6 % (2-9); MYELOCYTES# (MANUAL) 0.33 x10^3/uL (0-0); MYELOCYTES% (MANUAL) 2 % (0-0); SEG#(MANUAL) 10.66 x10^3/uL (1.8-6.8); SEGS% (MANUAL) 65 % (42-75)
[2020-04-04 09:09] LABS: <PLATELET ESTIMATE> INCREASED; ANISOCYTOSIS 1+
[2020-04-04 09:10] LABS: <PLT MORPHOLOGY> NORMAL PLT MORPH
[2020-04-04 09:12] LABS: POLYCHROMASIA 2+
[2020-04-04] MEDS: D5%-0.9% NACL 1,000 ML IV SCH (10:51)
[2020-04-04] MEDS: LEVOTHYROXINE 100 MCG INJ IVPush SCH (11:24)
[2020-04-04 13:09] VITALS: BP 99/63
[2020-04-04] MEDS: ENOXAPARIN 40 MG/0.4 ML SQ SCH (13:45)
[2020-04-04] MEDS ORDERED: DEXTROSE 70% IV SCH ×2 (17:00)
[2020-04-04] MEDS ORDERED: [UNRECOGNIZED DRUG - OTHER] IV SCH (17:00)
[2020-04-04] MEDS ORDERED: FAT EMUL IV SCH ×2 (17:00)
[2020-04-04] MEDS ORDERED: AMINO ACID 10% IV SCH ×2 (17:00)
[2020-04-04] MEDS ORDERED: [UNRECOGNIZED DRUG - OTHER] IV SCH (17:00)
[2020-04-04] MEDS ORDERED: SMOF TPN IV SCH ×2 (17:00)
[2020-04-04] MEDS: FILTER, DISP 1.2 MICRON FOR TPN/PVN IV PRN (17:19)
[2020-04-04 18:55] VITALS: BP 97/64
[2020-04-05 01:41] VITALS: BP 100/62
[2020-04-05] MEDS: PIPERACILLIN/TAZO/PMX 3.375GM 50 ML IV SCH ×2 (05:36→11:37)
[2020-04-05] MEDS: D5%-0.9% NACL 1,000 ML IV SCH (05:36)
[2020-04-05 05:53] LABS: MEAN CORPUSCULAR HEMOGLOBIN 32.9 pg (27.0-34.8); MEAN CORPUSCULAR HGB CONC 33.6 g/dL (32.4-35.8); MEAN PLATELET VOLUME 7.9 fL (7.4-10.4); PLATELET COUNT 635 x10^3/uL (130-400); RED BLOOD COUNT 2.64 x10^6/uL (3.82-5.3); RED CELL DISTRIBUTION WIDTH 18.1 % (9.6-15.2)
[2020-04-05 06:03] LABS: ANION GAP 4 mmol/L (5-15); CALCIUM 8.4 mg/dL (8.5-10.1); CHLORIDE 109 mmol/L (98-107); CREATININE 0.63 mg/dL (0.55-1.02)
[2020-04-05 07:01] LABS: MD YES
[2020-04-05 07:10] LABS: BAND#(MANUAL) 0.11 x10^3/uL; BANDS%(MANUAL) 1 % (0-7); BASOS#(MANUAL) 0.11 x10^3/uL (0-0.1); BASOS% (MANUAL) 1 % (0-1); EOS#(MANUAL) 0.22 x10^3/uL (0.0-0.4); EOS% (MANUAL) 2 % (1-7); LYMPH#(MANUAL) 1.85 x10^3/uL (1-3.4); LYMPHS% (MANUAL) 17 % (22-44); METAMYELOCYTES# (MANUAL) 0.22 x10^3/uL (0-0); METAMYELOCYTES% (MANUAL) 2 % (0-1); MONOS#(MANUAL) 1.09 x10^3/uL (0.3-2.7); MONOS% (MANUAL) 10 % (2-9); MYELOCYTES# (MANUAL) 0.11 x10^3/uL (0-0); MYELOCYTES% (MANUAL) 1 % (0-0); SEG#(MANUAL) 7.19 x10^3/uL (1.8-6.8); SEGS% (MANUAL) 66 % (42-75)
[2020-04-05 07:14] LABS: ANISOCYTOSIS 1+
[2020-04-05] MEDS: INSULIN REGULAR LOW DOSE QDAY SQ-INSULIN SCH (07:15)
[2020-04-05 07:18] LABS: <PLATELET ESTIMATE> INCREASED; <PLT MORPHOLOGY> NORMAL PLT MORPH; POLYCHROMASIA 2+
[2020-04-05 08:13] VITALS: BP 97/61
[2020-04-05] MEDS: FENTANYL 25 MCG PATCH TD SCH (08:43)
[2020-04-05] MEDS: FENTANYL REMOVE PATCH NOTE XX SCH (08:43)
[2020-04-05] MEDS: ENOXAPARIN 40 MG/0.4 ML SQ SCH (11:25)
[2020-04-05] MEDS: LEVOTHYROXINE 100 MCG INJ IVPush SCH (11:37)
[2020-04-05] MEDS ORDERED: AMINO ACID 10% IV SCH (17:00)
[2020-04-05] MEDS ORDERED: DEXTROSE 70% IV SCH (17:00)
[2020-04-05] MEDS ORDERED: [UNRECOGNIZED DRUG - OTHER] IV SCH (17:00)
[2020-04-05] MEDS ORDERED: SMOF TPN IV SCH (17:00)
[2020-04-05] MEDS ORDERED: FAT EMUL IV SCH (17:00)
== END 2020-04-05 13:35 | disposition home health service (06) | DRG 749 ==
LOC: OUT 06:59 → ORIP 11:29 → 4NW 13:17
PROVIDERS: ADMIT Hospitalist; ATTEND Hospitalist
PROC: 0DJ60ZZ Inspection of Stomach, Open Approach (ICD-10-PCS; 2020-03-18)
PROC: 0DNW0ZZ Release Peritoneum, Open Approach (ICD-10-PCS; 2020-03-18)
PROC: 0DQL0ZZ Repair Transverse Colon, Open Approach (ICD-10-PCS; 2020-03-18)
PROC: 0DH67UZ Insertion of Feeding Device into Stomach, Via Natural or Artificial Opening (ICD-10-PCS; 2020-03-18)
PROC: 02HV33Z Insertion of Infusion Device into Superior Vena Cava, Percutaneous Approach (ICD-10-PCS; 2020-03-31)
PROC: B5181ZA Fluoroscopy of Superior Vena Cava using Low Osmolar Contrast, Guidance (ICD-10-PCS; 2020-03-31)
PROC: 30233N1 Transfusion of Nonautologous Red Blood Cells into Peripheral Vein, Percutaneous Approach (ICD-10-PCS; principal; 2020-04-01)
DX: C56.9 Malignant neoplasm of unspecified ovary (principal); E43 Unspecified severe protein-calorie malnutrition; E87.0 Hyperosmolality and hypernatremia; C80.0 Disseminated malignant neoplasm, unspecified; E87.1 Hypo-osmolality and hyponatremia; K56.609 Unspecified intestinal obstruction, unspecified as to partial versus complete obstruction; K56.7 Ileus, unspecified; K63.2 Fistula of intestine; Z68.1 Body mass index [BMI] 19.9 or less, adult; Z20.828 Contact with and (suspected) exposure to other viral communicable diseases; D72.829 Elevated white blood cell count, unspecified; E03.9 Hypothyroidism, unspecified; D64.9 Anemia, unspecified; E83.42 Hypomagnesemia; I10 Essential (primary) hypertension; D47.3 Essential (hemorrhagic) thrombocythemia; Z85.43 Personal history of malignant neoplasm of ovary; Z79.899 Other long term (current) drug therapy; Z79.891 Long term (current) use of opiate analgesic; Z79.01 Long term (current) use of anticoagulants
CPT/HCPCS: 36415; 74018; J3475; J7030; J7042; 36573; 71045; 80048; 80053; 81003; 82040; 82962; 83735; 84100; 84134; 84478; 85025; 86850; 86900; 86923; 87040; 87086; 87635; 88305; B4087; G0378; J0610; J1100; J1170; J1650; J1885; J2250; J2270; J2405; J2543; J2704; J2710; J3010; J3411; J3480; C1751; J3420; J7040; J7120; P9016